=== PATIENT | male | born 1970 | race Two or more races ===

== ENCOUNTER 2017-12-14 12:47 | Emergency (ER) | payer OTHER ==
[2017-12-14] MEDS: IPRATROPIUM 0.5MG/ALBUTEROL 2.5MG INH SOL UD 3ML (DUONEB)(J7620) NEB (14:28)
== END 2017-12-14 15:42 | disposition home or self-care (01) ==
LOC: M ED 12:47
DX: S09.90XA Unspecified injury of head, initial encounter (principal); Y04.8XXA Assault by other bodily force, initial encounter; Y92.148 Other place in prison as the place of occurrence of the external cause; J45.909 Unspecified asthma, uncomplicated; I10 Essential (primary) hypertension; Z87.891 Personal history of nicotine dependence; Z91.018 Allergy to other foods; Z79.899 Other long term (current) drug therapy
CPT/HCPCS: 71046